=== PATIENT | male | born 1975 | race Caucasian/White ===

== ENCOUNTER 2025-03-29 15:12 | Outpatient (CLI) | payer BC, SELFPAY ==
--- NOTE | ~2025-03-29 | CT_ITS ---
EXAMINATION: CT abdomen pelvis wo con DATE: 03/29/2025 15:48 INDICATION: Acute flank pain. TECHNIQUE: Computed tomography (CT) of the abdomen and pelvis was performed without intravenous contrast. Automated exposure control and iterative reconstruction technique were employed. The dose-length product was 995.11 mGy-cm. COMPARISON: None. FINDINGS: The visualized portions of the lung bases are clear without pneumonia or pleural effusion. The heart size is normal. No pericardial effusion. The liver is normal. There are changes of cholecystectomy. There is mild splenomegaly. The pancreas, adrenal glands, and kidneys are normal. There is a 6 mm stone in distal left ureter. The prostate is mildly enlarged. There are no dilated loops of bowel. The appendix is normal. There are no pathologically enlarged lymph nodes. There is no free intraperitoneal fluid. There is a right inguinal hernia containing fat. There is moderate lumbar spondylosis. IMPRESSION: 1. 6 mm stone in distal left ureter. No hydronephrosis. Reviewed, dictated and finalized at location E.
--- OUTSIDE RECORDS SUMMARY | 2025-03-29 15:54 | XMS_ITS | Clinical Summary ---
Author Organization [facility] Address [address] [place] [address], [place] [address] Care Team Providers Care Overlock Hemmer Name Role Phone Unavailable Primary Care Provider Unavailabl e Allergies Active Allergy Reactions Criticality Noted Date Comments Iodinated Diagnostic Agents Hives Medium 10/15/19 22 Medications UNABLE TO FIND CBD oil Activ e fish oil omega-3 fatty acids 1000 MG capsule Take 4 capsules (4,000 mg) by mouth daily Active Cholecalciferol (VITAMIN D3) 25 MCG (1000 UT) CAPS Take 4,000 Units by mouth daily Active SPIRULINA PO Take 1 tablet by mouth daily Active Multiple Vitamin (MULTIVITAMIN ADULT PO) Take Active Active Problems No known active problems Immunizations Immunization Administration Dates Next Due Covid-19 21 Day Interval Pfizer [place] Cap 021,11/09/2020 Influenza Split Virus 06/13/2004 Family History Medical History Relation Name Comments No Known Problems Brother 1 No Known Problems Brother 2 Heart Disease Father has a pacemake r, low heart rate Autism Son 1 No Known Problems Son 2 Relation Name Status Comments Brother 1 Alive Brother 2 Alive Father Alive Mother Alive benign tumor on colon Son 1 Alive Son 2 Alive Social History Tobacco Use Types Packs/Day Years Used Date Smoking Tobacco: Former Smokeless Tobacco: Never Tobacco Cessation:Counseling Given: No Alcohol Use Standard Drinks/Week Comments Not Currently 0 (1 standard drink = 0.6 oz pur e alcohol) Alcohol Use Answer Date Recorded Frequency of Alcohol Consumption Not on file 12/08/2023 Average Number of Drinks Not on file 024 Frequency of Binge Drinking Not on file 11/22 Alcohol Use Status Not Currently 12/08/2023 Average alcohol consumption Not on file 11/22 Sex and Gender Information Value Date Recorded Sex Assigned at Male 10/10/2021 8:49 AM CDT 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 Gender Identity Male 10/10/2021 8:49 AM CDT Sexual Orientation Not on file Last Filed Vital Signs Vital Sign Reading Time Taken Comments Blood Pressure 178/86 02/24/2022 4:09 PM CDT Pulse 89 02/24/2022 4:09 PM CDT Temperature 37 C (98.6 F) 02/24/2022 2:16 PM CDT Respiratory Rate 18 02/24/2022 4:09 PM CDT Oxygen Saturation 96% 02/24/2022 4:09 PM CDT Inhaled Oxygen Concentration - - Weight 138.3 kg (305 lb) 02/24/2022 2:16 PM CDT Height 177.8 cm (5' 10) 02/24/2022 2:16 PM CDT Body Mass Index 43.76 02/24/2022 2:16 PM CDT Plan of Treatment Upcoming Encounters Date Type Department Care Team (Late st Contact Info) Description 05/03/2025 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 Office Visit [facility] [address] [address] Darling Gupta MD [address] [address] Health Maintenance Due Date Last Done Comments HIV Screening 1975 Hepatitis C Screening ages 1 8 to 79 once 1975 MMR VACCINES (1 of 1 - Standard series) 1974 YEARLY WELLNESS EXAM 1976 ADULT TETANUS 1992 HEPATITIS B VACCINES (1 of 3 - 19+ 3-dose series) 1992 LIPID TESTING 2008 DEPRESSION SCREENING 09/28/2022 09/28/2021 Zoster Vaccine (Recombinant Vaccine) (1 of 2) 2023 Influenza Vaccine 01/22/2025 06/13/2004 COVID-19 Immunization ( - season) 2025 12/07/2020, 11/09/2020 Colon Cancer Screening 01/21/2033 01/21/2023 HEPATITIS A VACCINES Aged Out No long er eligible based on patient's age to complete this topic HIB VACCINES Aged Out No longer eligi ble based on patient's age to complete this topic HPV VACCINES Aged Out No longer eligi ble based on patient's age to complete this topic IPV VACCINES Aged Out No longer eligi ble based on patient's age to complete this topic MENINGOCOCCAL VACCINE Aged Out No nneka keri eligible based on patient's age to complete this topic Meningococcal B Vaccine Aged Out No l onger eligible based on patient's age to complete this topic Pneumococcal Vaccine: Peds t o 50 & At-Risk Patients Aged Out No longer eligible based on patient's age to complete this topic ROTAVIRUS VACCINES Aged Out No longer eligible based on patient's age to complete this topic Insurance [employer] [facility] [facility] Subscriber Plan / Payer (Ef fective 2021-Present) Name:Kong Warren Relation to Subscriber:Spouse Name:PARESH WARREN Date of :1979 (Home) Address: [address] [place] [address] Payer ID:[id number] (NAIC) Type:CONTRACTED Address: [address] [place] [phone] ANTHEM/BCBS
== END 2025-03-29 15:13 | disposition home or self-care (01) ==
PROVIDERS: Visit Provider Physician Assistant Medical
DX: N20.1 Calculus of ureter (principal)
CPT/HCPCS: 74176

== ENCOUNTER 2025-04-06 09:02 | Outpatient (CLI) | payer BC, SELFPAY ==
--- NOTE | ~2025-04-06 | US_ITS ---
EXAMINATION: US scrotum doppler DATE: 04/06/2025 09:53 INDICATION: Penile lesion with palpable lump along the posterior penis TECHNIQUE: Testicular sonogram utilizing grayscale and Doppler COMPARISON: None. FINDINGS: The right testis measures 4.6 x 2.2 x 3.5 cm. The left testis measures 3.3 x 1.4 x 2.5 cm. Normal grayscale appearance to the right testis. Mildly heterogeneous echogenicity and coarsened echotexture in the left testis. There is a 2-3 mm anechoic tunica cyst along the superficial margin of the left testis. There is normal vascular flow to both testes. The right epididymis is normal with normal vascular flow. The left epididymis is normal with normal vascular flow. There is no hydrocele. Bilateral varicoceles, mild on the right with veins measuring up to 2.6 mm more prominent on the left with veins measuring up to 3.7 mm. There is subtle thickening of the subcutaneous fat at the region of concern. No discrete mass or abnormal fluid collections. IMPRESSION: 1. 2-3 mm benign tunica cyst along the periphery of the mildly atrophic left testis. Right testis and bilateral epididymides are normal. 2. Bilateral varicoceles, mild on the right and more prominent on the left. 2. Small region of symmetric thickening of the subcutaneous fat along the posterior penile region of concern. No discrete masses or abnormal fluid collections identified. Reviewed, dictated and finalized at location A. IMPRESSION: 1. 2-3 mm benign tunica cyst along the periphery of the mildly atrophic left t estis. Right testis and bilateral epididymides are normal. 2. Bilateral varicoceles, mild on the right and more prominent on the left. 2. Small region of symmetric thickening of the subcutaneous fat along the poste rior penile region of concern. No discrete masses or abnormal fluid collections identified.
--- OUTSIDE RECORDS SUMMARY | 2025-04-06 09:55 | XMS_ITS | Clinical Summary ---
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
== END 2025-04-06 09:03 | disposition home or self-care (01) ==
PROVIDERS: Visit Provider Physician Assistant Medical
DX: N48.29 Other inflammatory disorders of penis (principal); N44.1 Cyst of tunica albuginea testis; I86.1 Scrotal varices
CPT/HCPCS: 76870; 93976

== ENCOUNTER 2025-04-18 12:53 | Outpatient (CLI) | payer BC, SELFPAY ==
--- NOTE | ~2025-04-18 | CT_ITS ---
EXAMINATION: CT abdomen pelvis wo con DATE: 04/18/2025 13:16 INDICATION: Calculus of the left ureter. TECHNIQUE: Computed tomography (CT) of the abdomen and pelvis was performed without intravenous contrast. Automated exposure control and iterative reconstruction technique were employed. The dose-length product was 1013.56 mGy-cm. COMPARISON: CT abdomen and pelvis 03/29/25 FINDINGS: The visualized portions of the lung bases are clear without pneumonia or pleural effusion. The heart size is normal. No pericardial effusion. The liver is normal. There are changes of cholecystectomy. The spleen, pancreas, adrenal glands, and kidneys are normal. There is a 6 mm stone in distal left ureter. The appendix is normal. There are no dilated loops of bowel. There are no pathologically enlarged lymph nodes. There is no free intraperitoneal fluid. There is a right inguinal hernia containing fat. There is moderate thoracic spondylosis and mild lumbar spondylosis. IMPRESSION: 1. Unchanged 6 mm stone in distal left ureter. No hydronephrosis. Reviewed, dictated and finalized at location E.
== END 2025-04-18 12:54 | disposition home or self-care (01) ==
PROVIDERS: PCP Physician Assistant; Visit Provider Physician Assistant
DX: N20.1 Calculus of ureter (principal)
CPT/HCPCS: 74176

== ENCOUNTER 2025-05-11 01:36 | Day surgery (SDC) | payer BC, SELFPAY ==
[2025-04-29 12:21] VITALS: BMI 41.3
--- NOTE | 2025-04-29 12:34 | PC.NURSE ---
[facility] has started construction of its new state of the art ER which will open Spring 2026. With this, we anticipate parking may be a challenge for some our surgical patients and families. Parking spaces are limited but are available for all Surgical, obstetrics, and ER patients sharing this lot. If you arrive and find you are having a hard time finding a parking space, please note that we understand the challenges, please drive around the hospital and park near Hospital Entrance 1. When you enter this entrance, you can ask a volunteer to direct or take you back to the surgical waiting area to check in. We appreciate everyone?s understanding of these expected challenges while we build for your future. Report to the Outpatient Waiting Room, entrance under the green pavilion located off [address], at time _1200_ on date _[id number]_. Planned Procedure Time: _2pm_.? Time changes happen often and if your time is changed the preop area will call you the afternoon before. - You and your visitor will be asked to self-screen and do not enter if you have any COVID symptoms. Please call surgeon if you need to reschedule. - A mask is optional within the hospital at this time. Patients may have clear liquids (water, carbonated beverages, clear teas, apple juice) until 3 hours prior to surgery with a maximum of 20 ounces. - No food from midnight until time of surgery and no smoking, or chewing tobacco (or any form of nicotine). No chewing gum, candy or mints. Take only the following medications with a SIP of water on the morning of surgery: __None____ DO NOT STOP ANY OF YOUR OTHER PRESCRIPTION MEDICATIONS PRIOR TO SURGERY EXCEPT THE FOLLOWING Hold all vitamins and supplements for 3 days per anesthesiologist. Medications to discontinue per physician Date to take last dose Please no make-up, nail iranian, hairspray, perfume, deodorant, or body powder the day of surgery.? No jewelry (including any body piercings) or valuables the day of surgery, leave them at home.? Please take a shower or bath the night before, or the morning of, surgery with an antibacterial soap.? Wear comfortable, loose fitting clothing.? - Jewelry must be removed prior to entering the operating room.? Rings and piercings that are not removed may be cut off. - The hospital will not accept responsibility for valuables.? - Please leave all valuables, including medications, at home the day of surgery. If you are going home after surgery, a licensed regional refrigerated cdl truck driver must drive you home.? - NO public transportation without another adult if you receive anesthesia. - We recommend that an adult stay with you for 24 hours following discharge. - We also recommend that you do not drive, make important decision, drink alcoholic beverages, or take any drugs that were not prescribed by your health care provider for at least 24 hours after your discharge time. Follow any additional instructions given to you from your surgeon. Telephone instructions given to __Adam___and asked if any additional questions and then verbalized understanding. Patient advised to call surgeon office or pre surgery nurse liaison [phone] if any additional questions.
--- OUTSIDE RECORDS SUMMARY | 2025-05-04 00:37 | XMS_ITS | Clinical Summary ---
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 Gender Identity Male 10/10/2021 8:49 AM CDT [...] 02/24/2022 2:16 PM CDT Plan of Treatment Health Maintenance Due Date Last Done Comments [...] Influenza Vaccine 01/22/2025 06/13/2004 COVID-19 Immunization ( season) 2025 12/07/2020, 11/09/2020 Colon Cancer Screening [...] patient's age to complete this topic Insurance [email or web address] Member Subscriber Plan / Payer ( fective 2021-Present) Name:Kong Warren Relation to Subscriber:Spouse Name:PARESH WARREN Date of :1979 (Home) Address: [address] [place] [address] Payer ID:[id number] (NAIC) Type:CONTRACTED Address: [address] [facility] [place] [address] [email or web address]THEM[employer]
--- NOTE | 2025-05-06 14:30 | PC.NURSE ---
PT STATES NO CHANGES IN HEALTH SINCE PREV INTERVIEW EXCEPT COLD/FLU SYMPTOMS IMPROVED; NO LONGER FEBRILE. STILL HAS A PERSISTENT, NON-PRODUCTIVE COUGH AND WANTS TO PROCEED WITH ELECTIVE UROLOGIC PROCEDURE. STATES NO ISSUES WITH PASSAGE OF URINE. NEW INSTRUCTIONS GIVEN.
[2025-05-11] VITALS (10 sets, daily range): BP systolic 131–157; BP diastolic 70–96; PULSE 70–94; RESP 12–20; TEMP 36.2–36.5; O2SAT 97–100; BMI 41.2
--- NOTE | ~2025-05-11 | XR_ITS ---
EXAMINATION: XR retrograde pyelo w/stent LT DATE: 05/11/2025 09:04 INDICATION: Left retrograde pyelogram and ureteral stent placement. TECHNIQUE: 6 fluoroscopic images of the abdomen and pelvis were obtained procedure performed by Dr. Bateman. Radiologist was not present for the imaging or procedure. The amount of fluoroscopy time used during this procedure was 0.7 minutes. The dose area product was 1.22 mGym^2. COMPARISON: None. FINDINGS: Images demonstrate cannulation and retrograde contrast injection into the left ureter and renal collecting system which demonstrates mild left hydronephrosis. Subsequent images demonstrate placement of a left intraureteral stent with loops formed in the renal calyx of the right kidney and in the bladder. IMPRESSION: 1. Mild left hydronephrosis with placement of a left intraureteral stent which is in expected position. See procedure note for further detail. Reviewed, dictated and finalized at location A. [facility]
[2025-05-11] MEDS: LACTATED RINGERS 1,000 ML 30 ML IV CONT (06:55)
--- NOTE | 2025-05-11 07:01 | WPDANESEPPF ---
Anes - Initial Pre Proc Eval Procedure: Operation Date: 05/11/25 08:30 Proposed Procedures p Cystoscopy, Left Retrograde Pyelogram, Left Ureteroscopy, Left Stone Basket Extraction, Left Ureteral Stent Placement, Possible Laser Lithotripsy - Florentin Bateman MD Date/Time: 05/11/25 07:01 Surgeon: Florentin Bateman MD Pre Op Diagnosis: left ureteral stone Patient Data Age: 50 Gender: M Height: 1.8 m Weight: 134.5 kg Allergies Allergy/AdvReac Type Severity Reaction Status Date / Time No Known Allergies Allergy Verified 04/29/25 12:20 Home Medications ?Medication ?Instructions ?Recorded ?Confirmed ?Type multivitamin (Daily Multi-Vitamin 1 tablet PO DAILY 04/29/25 04/29/25 History tablet) tamsulosin 0.4 mg capsule 0.4 mg PO HS 04/29/25 04/29/25 History Patient hx anesthesia problems: none Family hx anesthesia problems: none Results Review: All pre-operative results and documents have been reviewed as part of the pre-operative evaluation. [facility] Past Medical History Medical History (Updated 05/11/25 @ 07:01 by Rubén Luque MD) Morbid obesity Social History Social History Smoking packs per day: 1 Smoking cigarettes per day: 20.0 Years smoked: 12 Smoking pack-years: 12.00 Smoking status: Former smoker Tobacco type: cigarettes Smoking end date: 04/29/00 Alcohol intake: current Substance use: current Substance use type: marijuana Other substance usage details: Edibles occasionally for sleep Living arrangements: with family Spiritual care concerns: No Anes - Eval Final PreProcedure Day of Procedure 05/11/25 07:01 Patient weight: morbidly obese Heart: regular rate and rhythm Lungs: clear to auscultation Airway: Mallampati scale class II Neurological: alert and oriented Last oral intake: >/= 8 hours ASA classification: III Emergent: no Anesthetic plan: proceed Anesthesia type and monitoring: general LMA and standard monitoring Results Review: All pre-operative results and documents have been reviewed as part of the pre-operative evaluation. Informed Consent: The patient's anesthetic plan and its attendant risks and benefits were discussed with the patient/family/POA. Questions were solicited and answers provided to the satisfaction of the patient/family/POA.
--- NOTE | 2025-05-11 07:57 | PM.HPGS ---
History of Present Illness History of Present Illness Consent: Risks, benefits, and alternatives have been discussed and questions answered. Patient agrees to proceed with procedure. Chief complaint: left ureteral stone Narrative: Kong Warren is a 50 year old male who was found on recent CT scan to have a 6 mm left distal ureteral stone. He has had ongoing left abdominal and flank pain. He has not seen the stone pass in his urinary stream. He presents today for endoscopic management of the stone. Review of Systems Review of Systems: Constitutional: No fevers or chills Eyes: No changes in vision HENT: No hearing loss Cardiovascular: No chest pain or palpitations Respiratory: No shortness of breath, cough, wheezing GI: As per HPI : As per HPI Heme: No easy bruising or bleeding Skin: No rash or itching MSK: No myalgias or joint pain Psych: No hallucinations Neuro: No lateralized numbness or tingling PMFSH Past Medical History Medical History (Updated 05/11/25 @ 07:59 by Florentin Bateman MD) Morbid obesity Social History Social History Smoking packs per day: 1 Smoking cigarettes per day: 20.0 Years smoked: 12 Smoking pack-years: 12.00 Smoking status: Former smoker Tobacco type: cigarettes Smoking end date: 04/29/00 Alcohol intake: current Substance use: current Substance use type: marijuana Other substance usage details: Edibles occasionally for sleep Living arrangements: with family Spiritual care concerns: No Meds Home Medications and Allergies Home Medications ?Medication ?Instructions ?Recorded ?Confirmed ?Type multivitamin (Daily Multi-Vitamin 1 tablet PO DAILY 04/29/25 05/11/25 History tablet) tamsulosin 0.4 mg capsule 0.4 mg PO HS 04/29/25 05/11/25 History Allergies Allergy/AdvReac Type Severity Reaction Status Date / Time No Known Allergies Allergy Verified 05/11/25 07:22 Vital Signs Vital Signs - 24 hr 05/11/25 06:06 Temperature 36.5 C Pulse Rate 80 Respiratory Rate 16 Blood Pressure 157/96 H Pulse Oximetry 100 Oxygen Delivery Room Air Exam Narrative: General: Alert, no acute distress Head: Normocephalic, atraumatic Eyes: Extraocular movements intact Neck: No JVD, trachea midline Respiratory: Symmetric chest rise, nonlabored breathing on room air CV: Normal rate, adequate peripheral perfusion Abdomen: Soft, nondistended Skin: Warm/dry Extremities: No peripheral edema, no cyanosis Neuro: No focal deficits Psych: Answers questions appropriately, appropriate mood Assessment and Plan Assessment and plan (1) Left ureteral stone: Code(s): N20.1 - Calculus of ureter Status: Acute Assessment and Plan: 50-year-old male with a 6 mm left distal ureteral stone Plan - To OR for cystoscopy, left retrograde pyelogram, ureteroscopy, laser lithotripsy, stone basket extraction, left ureteral stent placement - The risks, benefits, and alternatives were thoroughly discussed with the patient. The modus operandi of the procedure as well as the risks of the procedure were outlined, including but not limited to pain, bleeding, infection, and potential damage to surrounding structures such as the urethra, bladder, ureter, or kidney. Additionally, the risks of dysuria, hematuria, the inability to reach the stone, inability to place a ureteral stent necessitating placement of a nephrostomy tube, and the potential need for subsequent procedures were reviewed. The necessity of removing any ureteral stent, if placed, was emphasized to the patient. I explained that failure to remove the stent could result in long-term complications to the kidney, ureter, and the genitourinary tract, including but not limited to permanent kidney damage or kidney failure. I also reviewed the temporary nature of ureteral stents, noting that they can cause discomfort similar to renal colic and may lead to irritative voiding symptoms as well as hematuria. The patient was informed that stents are not permanent and must be either removed or exchanged periodically to prevent encrustation and irreversible kidney damage. The patient indicated full understanding of these risks and requirements. The patient has verbally acknowledged comprehension and has agreed to proceed with the surgery. - 2 g IV Ancef on-call to OR - Anticipate discharge home thereafter
--- NOTE | 2025-05-11 08:00 | WPDHPUPDATE1 ---
History and Physical Update Update Date/Time: 05/11/25 08:00 History and Physical has been reviewed, including an updated exam of the patient. There are NO changes in the patient's condition. Risks, benefits, and alternatives have been discussed and questions answered. Patient agrees to proceed with procedure.
[2025-05-11] MEDS: ceFAZolin 3 GM/D5W 100 ML 100 ML IVPB (08:12)
--- NOTE | 2025-05-11 08:52 | S_PTH ---
PATIENT: Kong Warren LOC: [facility] U#:[id number] AGE/SX: 50/M ROOM: RE05/11/[address]: Florentin Bateman MD : 1975 BED: DIS: 05/11/2025 SPEC #: [id number] RECD: 05/11/25 09:04 STATUS: FAROOQ REKe #: [id number] KACEY: 05/11/25 08:[address]: Florentin Bateman DEPT: [facility] Surgical RECD BY: Shauna Fay ENTERED: 05/11/25 09:05 SP TYPE: Surgical OTHR DR: JAE Corado Tissues: A - Stone Procedures: Gross Exam Level 1 Crystalline Analysis
--- NOTE | 2025-05-11 09:08 | P.OP_ITS ---
Procedure Note - Detailed Date of Procedure 05/11/25 Pre-op Diagnosis left ureteral stone Post-op Diagnosis Same Procedure Performed 1. Cystoscopy 2. Left retrograde pyelogram with intraoperative interpretation 3. Left ureteroscopy 4. Laser lithotripsy 5. Stone basket extraction 6. Left ureteral stent placement Surgeon Florentin Batmean MD Anesthesia General Findings 1. Cystourethroscopy revealed [id number] lateral lobe hyperplasia with an elevated bladder neck. Orthotopic ureteral orifices bilaterally with no suspicious lesions, tumors, active bleeding, or stones in the lower urinary tract. 2. Left ureteroscopy revealed an impacted approximately 6-7 mm stone in the left distal ureter. This stone was successfully fragmented with laser fiber into sub 1 mm fragments and any larger fragments were retrieved with a ZeroTip Nitinol basket and sent as a specimen for kidney stone analysis 3. Completion ureteroscopy revealed no sizable residual ureteral stones nor notable ureteral injury 4. Left retrograde pyelogram using a 50 50 mixture of contrast and saline performed after stone treatment showed mild left hydronephrosis without contrast extravasation or filling defects 5. Successful left ureteral stent placement without strings attached Description of Procedure After informed consent was obtained, the patient was brought back to the operating theatre and placed in the supine position on the operating table. Pre- operative antibiotics were confirmed to have been administered. Anesthesia was induced. The patient was moved into the dorsal lithotomy position and prepped and draped in the standard sterile fashion for an endoscopic case. All pressure points were padded. Bilateral sequential compression devices were on and noted to be functioning. A formal timeout was performed with Dr. Bateman in attendance to confirm the correct patient, site/laterality, and procedure and all were in agreement to proceed. To begin with, I atraumatically advanced a lubricated 22-Bermudian rigid cystoscope transurethrally into the patient's bladder. Pancystoscopy was performed with findings as noted above. Attention was then turned to the left ureteral orifice, which was gently cannulated with an open-ended catheter to perform left ureteral catheterization and through the catheter a Sensor wire was advanced up to the level left kidney under fluoroscopy. Afterwards, the open-ended catheter was removed in Seldinger fashion, leaving the wire in place. I then removed the cystoscope and secured the wire to the drapes with a hemostat. I then inserted a semi rigid ureteroscope transurethrally into the patient's bladder with attention drawn to the left ear orifice. I cannulated the left ureteral orifice with a 2nd, safety Glidewire which was also advanced up to the level of left kidney under fluoroscopy. I then performed a ?rail road? technique and guided the ureteroscope between the 2 wires to perform left ureteroscopy. At the level of the left distal ureter a few cm proximal to the ureteral orifice I noted an approximately 6-7 mm ureteral stone which was impacted with surrounding mucosal edema. I removed the Glidewire and then advanced a 200 micron holmium laser and performed laser lithotripsy, to dust the stone into sub 1 mm fragments. Any larger fragments were retrieved with a Zero tip Nitinol basket and deployed in the bladder for later collection. I then performed completion ureteroscopy and noted no sizable residual ureteral stones no notable ureteral injury. Through the ureteral scope I then performed a left-sided retrograde pyelogram in order to delineate the left collecting system in anticipation of stent placement; see above for intraoperative left retrograde pyelogram findings. I then removed the ureteroscope and backloaded the cystoscope onto the Sensor wire which was advanced transurethrally the patient's bladder with attention drawn to the left ureteral orifice. Over top of the wire, a 6-Bermudian variable length JJ stent was advanced and the pusher was used to deploy the stent in place, confirming a good proximal curl in the left kidney under fluoroscopy and a good distal curl in the bladder under both fluoroscopic and direct cystoscopic vision. The patient's bladder was then emptied and the stone fragments were retrieved and sent off as a specimen for kidney stone analysis. Lastly, the cystoscope was removed, essentially concluding the case. At the conclusion of the case all sponge, instrument, and sharp counts were correct x 2. The patient was then awoken from anesthesia and taken to the recovery room in stable condition. The patient tolerated the procedure well and there were no immediate complications noted. Disposition: The patient will be monitored in the PACU and be discharged was clearing PACU protocol. He will follow up in about 2 weeks for office cystoscopy and left ureteral stent removal. The patient's was provided with a postoperative updated all questions were answered to her satisfaction at the conclusion of our discussion.
== END 2025-05-11 10:57 | disposition home or self-care (01) ==
PROVIDERS: PCP Physician Assistant; Visit Provider Urology
PROC: (CPT 52352; principal; 2025-05-11 08:30)
DX: N13.2 Hydronephrosis with renal and ureteral calculous obstruction (principal); N40.0 Benign prostatic hyperplasia without lower urinary tract symptoms; F12.90 Cannabis use, unspecified, uncomplicated; E66.01 Morbid (severe) obesity due to excess calories; Z68.41 Body mass index [BMI] 40.0-44.9, adult; Z98.890 Other specified postprocedural states; Z87.891 Personal history of nicotine dependence
CPT/HCPCS: 52356; 74420; 82365; 88300; C1758; C1769; C2617; J0690; J1100; J2003; J2250; J2405; J3010; J7120; Q9966